=== PATIENT | female | born 1970 | race Hispanic/Latino ===

== ENCOUNTER 2020-09-17 07:26 | Day surgery (SDC) | payer OTHER ==
[~2020-09-17] VITALS: Ht 149.9 cm; Wt 56.7 kg
[2020-09-17] VITALS (7 sets, daily range): BP systolic 85–106; BP diastolic 36–64
[~2020-09-17 07:26] MED LIST: DULO60CA44 PO; L.AC1CAP6 PO; METH10TA7 PO; SODIUM CHLORIDE 0.9% 1000ML 1,000 ML IV ONE
[2020-09-17] MEDS ORDERED: MIDAZOLAM HCL 1 MG/ML 2ML VIAL ONE (10:16)
[2020-09-17] MEDS ORDERED: PROPOFOL 10 MG/ML 20ML VIAL IV ONE (10:16)
== END 2020-09-17 11:12 | disposition home or self-care (01) ==
LOC: DAH 07:26 → ENDO 07:26
PROVIDERS: ATTEND Internal Medicine Gastroenterology
DX: K59.04 Chronic idiopathic constipation (principal); R19.5 Other fecal abnormalities; K44.9 Diaphragmatic hernia without obstruction or gangrene; K76.0 Fatty (change of) liver, not elsewhere classified; K21.9 Gastro-esophageal reflux disease without esophagitis; E05.90 Thyrotoxicosis, unspecified without thyrotoxic crisis or storm; F41.9 Anxiety disorder, unspecified; F32.9 Major depressive disorder, single episode, unspecified; Z79.899 Other long term (current) drug therapy; Z20.828 Contact with and (suspected) exposure to other viral communicable diseases
CPT/HCPCS: 36415; 45378; 84703; A4215; A4221; A4222; A4223; A4606; A4620; A4657; A4663; C9803; J2250; J2704; J7030; U0003

== ENCOUNTER → 2022-01-31 | Outpatient (CLI) | payer OTHER ==
[~2022-01-31] MED LIST changes: -DULO60CA44 PO; +DULO60CA45 PO; +METH-387 PO; -METH10TA7 PO; -SODIUM CHLORIDE 0.9% 1000ML 1,000 ML IV ONE
== END | disposition home or self-care (01) ==
LOC: SLP 20:37
PROVIDERS: ATTEND Internal Medicine Critical Care Medicine
DX: G47.33 Obstructive sleep apnea (adult) (pediatric) (principal)
CPT/HCPCS: 95810

== ENCOUNTER 2022-07-24 09:53 | Day surgery (SDC) | payer OTHER ==
[2022-07-24] VITALS (7 sets, daily range): BP systolic 124–142; BP diastolic 66–84
[~2022-07-24] VITALS: Ht 149.9 cm; Wt 59.0 kg
[2022-07-24] MEDS ORDERED: 0.9%NACL 1000ML 1,000 ML IV ONE (10:55)
[2022-07-24] MEDS ORDERED: MIDAZOLAM HCL 1 MG/ML 2ML VIAL ONE (12:59)
[2022-07-24] MEDS ORDERED: FENTANYL CITRATE PF 50 MCG/1 ML 2ML VIAL ONE (12:59)
[2022-07-24] MEDS ORDERED: PROPOFOL 10 MG/ML 20ML VIAL IV ONE ×2 (12:59)
[2022-07-24] MEDS ORDERED: LIDOCAINE PF 100MG/5ML (2%) SYRINGE 5ML ONE (13:08)
[2022-07-24] MEDS ORDERED: FAMOTIDINE 20MG VIAL IV ONE (13:10)
== END 2022-07-24 14:05 | disposition home or self-care (01) ==
LOC: ENDO 09:53 → DAH 09:53 → ENDO 14:05
PROVIDERS: ATTEND Internal Medicine Gastroenterology
DX: K21.00 Gastro-esophageal reflux disease with esophagitis, without bleeding (principal); K29.50 Unspecified chronic gastritis without bleeding; K31.7 Polyp of stomach and duodenum; K44.9 Diaphragmatic hernia without obstruction or gangrene; K76.0 Fatty (change of) liver, not elsewhere classified; E05.90 Thyrotoxicosis, unspecified without thyrotoxic crisis or storm; F41.9 Anxiety disorder, unspecified; F32.A Depression, unspecified; K59.00 Constipation, unspecified; Z79.899 Other long term (current) drug therapy
CPT/HCPCS: 87426; 43239; 81025; J3490; J3010; J7030; J2001; J2250; J2704; A4620; A4215 ×2; A4223; A4221; A4663; A4606

== ENCOUNTER 2025-02-22 05:35 | Day surgery (SDC) | payer OTHER ==
[2025-02-22] VITALS (15 sets, daily range): BP systolic 94–119; BP diastolic 54–73; PULSE 72–82; RESP 15–18; TEMP 97.2–98.1
[~2025-02-22] VITALS: Ht 149.9 cm; Wt 56.7 kg
[2025-02-22] MEDS ORDERED: METHIMAZOLE PO (06:16)
[2025-02-22] MEDS: 0.9%NACL 1000ML 1,000 ML IV ONE (06:17)
[2025-02-22] MEDS ORDERED: proPOFol 10 MG/ML 20ML VIAL IV ONE ×2 (07:11)
[2025-02-22] MEDS ORDERED: LIDOCAINE HCL 1% 20 ML VIAL ONE (07:11)
[2025-02-22] MEDS: SIMETHICONE 40 MG/0.6 ML ML ONE (08:13)
--- NOTE | 2025-02-22 08:55 | NUR ---
Full and complete discharge instructions given to Patient and Family both verbally and in writing. Explained GI procedure precautions and follow up. Patient voided large amount and passed gas and stated "I'm feeling better" All questions answered. PIV removed with catheter tip intact. Home with Family W/C to POV.
== END 2025-02-22 08:55 | disposition home or self-care (01) ==
LOC: ENDO 05:35 → DAH 05:35 → ENDO 08:55
PROVIDERS: ATTEND Internal Medicine Gastroenterology
DX: R19.4 Change in bowel habit (principal); R10.13 Epigastric pain; K29.50 Unspecified chronic gastritis without bleeding; K21.00 Gastro-esophageal reflux disease with esophagitis, without bleeding; F41.9 Anxiety disorder, unspecified; F32.A Depression, unspecified; E05.90 Thyrotoxicosis, unspecified without thyrotoxic crisis or storm; Z79.899 Other long term (current) drug therapy; Z98.890 Other specified postprocedural states
CPT/HCPCS: 81025; 43239; 45378; J7030 ×2; J2704 ×2; A4215; A4223; A4222; A4221; A4663; A4606; J3490